=== PATIENT | male | born 1995 | race Caucasian/White ===

== ENCOUNTER 2017-07-19 20:40 | Emergency (ER) | payer SELFPAY ==
--- NOTE | 2017-07-20 05:37 | Emergency Department Report ---
ED General Adult HPI - General Chief complaint: Nosebleed Stated complaint: NOSE BLEED FOR 1 MONTH Time Seen by Provider: 07/20/17 05:32 Source: patient, family, RN notes reviewed Mode of arrival: Ambulatory - History of Present Illness Initial comments: This is a 22-year-old male, the patient is previously unknown to me, he presents to the ER with intermittent right-sided nasal bleeding which is painless. There is no trauma, there is no cocaine use. It has been going on for 2 months. Does not have exacerbating or relieving factors. No other complaints. -: Gradual Location: face Severity scale (0 -10): 0 Consistency: intermittent Improves with: none Worsens with: none Associated Symptoms: denies other symptoms - Related Data Previous Rx's Medication Instructions Recorded Last Taken Type Fluticasone [Flonase] 1 spray NS QDAY #1 bottle 07/20/17 Unknown Rx Oxymetazoline 0.05% [Afrin] 1 spray NS BID #1 bottle 07/20/17 Unknown Rx Allergies Allergy/AdvReac Type Severity Reaction Status Date / Time No Known Allergies Allergy Verified 07/19/17 22:59 ED Review of Systems ROS: Stated complaint: NOSE BLEED FOR 1 MONTH Other details as noted in HPI Constitutional: denies: fever Eyes: denies: vision change ENT: epistaxis Respiratory: denies: cough Cardiovascular: denies: chest pain Gastrointestinal: denies: vomiting Genitourinary: as per HPI Musculoskeletal: as per HPI Skin: as per HPI Neurological: as per HPI Psychiatric: as per HPI Hematological/Lymphatic: as per HPI ED Past Medical Hx - Past Medical History Previous Medical History?: No - Surgical History Past Surgical History?: No - Social History Smoking Status: Current Some Day Smoker Substance Use Type: Alcohol - Medications Home Medications: Home Medications Medication Instructions Recorded Confirmed Last Taken Type Fluticasone [Flonase] 1 spray NS QDAY #1 bottle 07/20/17 Unknown Rx Oxymetazoline 0.05% [Afrin] 1 spray NS BID #1 bottle 07/20/17 Unknown Rx ED Physical Exam - General Limitations: Language Barrier (this provider is conversational and French) General appearance: alert, in no apparent distress - Head Head exam: Present: atraumatic, normocephalic - Eye Eye exam: Present: normal appearance, EOMI. Absent: nystagmus - ENT ENT exam: Present: normal exam, normal orophraynx, mucous membranes moist, normal external ear exam, other (nasal clot is noted on the right nostril.) - Neck Neck exam: Present: normal inspection, full ROM - Respiratory Respiratory exam: Present: normal lung sounds bilaterally. Absent: respiratory distress - Cardiovascular Cardiovascular Exam: Present: regular rate, normal rhythm, normal heart sounds. Absent: systolic murmur, diastolic murmur, rubs, gallop - GI/Abdominal GI/Abdominal exam: Present: soft, normal bowel sounds. Absent: distended, tenderness, guarding, rebound, rigid - Rectal Rectal exam: Present: deferred - Extremities Exam Extremities exam: Present: normal inspection. Absent: calf tenderness - Back Exam Back exam: Present: normal inspection. Absent: tenderness, CVA tenderness (R) - Neurological Exam Neurological exam: Present: alert, oriented X3, other (Extraocular movements intact. Tongue midline. No facial droop. Facial sensation intact to light touch in the V1, V2, V3 distribution bilaterally. 5 and 5 strength in 4 extremities.. Sensation is intact to light touch in 4 extremities.). Absent: motor sensory deficit - Psychiatric Psychiatric exam: Present: normal affect, normal mood - Skin Skin exam: Present: warm, dry, intact, normal color. Absent: rash ED Course Vital Signs 07/19/17 07/19/17 07/20/17 22:16 22:54 04:31 Temperature 97.4 F L 97.7 F Pulse Rate 69 74 69 Respiratory 18 Rate Blood Pressure 137/83 137/83 137/83 O2 Sat by Pulse 99 99 99 Oximetry ED Medical Decision Making - Lab Data Vital Signs 07/19/17 07/19/17 07/20/17 22:16 22:54 04:31 Temperature 97.4 F L 97.7 F Pulse Rate 69 74 69 Respiratory 18 Rate Blood Pressure 137/83 137/83 137/83 O2 Sat by Pulse 99 99 99 Oximetry - Medical Decision Making Differential diagnosis: Epistaxis, now resolved Assessment and plan: 22-year-old male with resolved epistaxis. He is afebrile with reassuring vital signs. He is given a tongue depressor device. He is instructed that bleeding may return again. Not actively bleeding at this time. He will be discharged. Critical care attestation.: If time is entered above; I have spent that time in minutes in the direct care of this critically ill patient, excluding procedure time. ED Disposition Clinical Impression: Nasal bleeding Disposition: DC-01 TO HOME OR SELFCARE Is pt being admited?: No Does the pt Need Aspirin: No Condition: Stable Instructions: Epistaxis (ED) Additional Instructions: Use the medications as directed. Bleeding is likely to reoccur. If and when bleeding reoccurs, applied direct pressure to the nostrils using the tongue depressor device as directed. Flonase can be used indefinitely, Afrin can be used once every 12 hours, per nostril, for 3 days. Do not use for more than 3 days consecutively. Return to the ER right away with fevers, chills, lethargy, irritability, projectile vomiting, change in mental status, inability to tolerate liquid feeds. Follow up with a primary care doctor or learning and development assistant within the next month. Dr. Stoner is a local otolaryngology specialist. Dr. Le is a local primary care doctor. Utilice los medicamentos segn las indicaciones. El sangrado es probable que vuelva a ocurrir. Si y cuando el sangrado vuelve a ocurrir, se aplica presin directa a las fosas nasales usando el dispositivo de depresin de la lengua seg n las indicaciones. Flonase se puede utilizar indefinidamente, Afrin se puede utilizar ashley vez cada 12 horas, por fosa nasal, chanelle 3 burgos. No utilizar chanelle ms de 3 burgos consecutivos. Vuelva al ER de inmediato con fiebres, escalofros, letargo, irritabilidad, vmitos de proyectiles, cambios en el estado mental, incapacidad para tolerar alimentos lquidos. Sacha un seguimiento con un mdico de atencin primaria o un especialista en nariz y garganta en el prximo mes. El Dr. Stoner es un especialista en otorrinolaringologa local. El Dr. Le es un mdico local de atencin primaria. Referrals: PRIMARY CARE,MD [Primary Care Provider] - 3-5 Days TAY LE MD [Staff Physician] - 3-5 Days VIDHI KRUSE MD [Staff Physician] - 3-5 Days
[2017-07-20 06:03] VITALS: BP 135/80
== END 2017-07-20 06:04 | disposition home or self-care (01) ==
LOC: ED 20:40
DX: R04.0 Epistaxis (principal); F17.210 Nicotine dependence, cigarettes, uncomplicated
CPT/HCPCS: 99282